=== PATIENT | female | born 1955 | race Two or more races ===

== ENCOUNTER 2017-02-16 14:20 | Emergency (ER) | payer MEDICAID, OTHER ==
[~2017-02-16] VITALS: Ht 157.5 cm; Wt 65.0 kg
[2017-02-16] MEDS ORDERED: SODIUM CHLORIDE FLUSH 10ML SYR IVF ONE ×2 (15:30→16:00)
[2017-02-16] MEDS ORDERED: SODIUM CHLORIDE 0.9%, 500ML IVBOLUS ONE (15:30)
[2017-02-16 15:45] LABS: HEMOGLOBIN 14.6 g/dL (11.7-16.4)
[2017-02-16] MEDS ORDERED: FAMOTIDINE 20 MG/2 ML ONE (15:55)
[2017-02-16] MEDS ORDERED: ONDANSETRON 2MG/ML, 2ML ONE (15:55)
[2017-02-16] MEDS ORDERED: MORPHINE SULFATE 4 MG/ML, 1ML ONE (15:55)
[2017-02-16 15:58] LABS: ASPARTATE AMINO TRANSFERASE 23 U/L (15-37); BLOOD UREA NITROGEN 10 mg/dL (7-18)
[2017-02-16] MEDS ORDERED: FAMOTIDINE 20 MG/2 ML IVP ONE (16:00)
[2017-02-16] MEDS ORDERED: ONDANSETRON 2MG/ML, 2ML IVPush ONE (16:00)
[2017-02-16] MEDS ORDERED: MORPHINE SULFATE 4 MG/ML, 1ML IVPush PRN (16:00)
[2017-02-16] MEDS ORDERED: SODIUM CHLORIDE 0.9% 1,000ML IVBOLUS ONE (16:00)
[2017-02-16 16:24] LABS: PATH.CAST-FLAG NOT PRESENT; SPERM-FLAG NOT PRESENT; SRC-FLAG NOT PRESENT; XTAL-FLAG NOT PRESENT; YLC-FLAG NOT PRESENT
[2017-02-16 18:05] VITALS: BP 128/66
== END 2017-02-16 19:15 | disposition home or self-care (01) ==
LOC: ED 19:00
DX: N30.91 Cystitis, unspecified with hematuria (principal); E78.5 Hyperlipidemia, unspecified; G89.29 Other chronic pain; I10 Essential (primary) hypertension; K59.00 Constipation, unspecified; Z90.710 Acquired absence of both cervix and uterus; Z90.49 Acquired absence of other specified parts of digestive tract
CPT/HCPCS: 36415; 74176; 74177; 80053; 81001; 83690; 85025; 87077; 87086; 96361; 96374; 96375; 99285; J2405; J7030; 87186; S0028

== ENCOUNTER 2018-04-26 11:41 | Emergency (ER) | payer MEDICAID, OTHER ==
[~2018-04-26] VITALS: Ht 157.5 cm; Wt 70.5 kg
[~2018-04-26 11:41] MED LIST: UNKNOWN BP MED PO; [UNRECOGNIZED DRUG - REMARK] PO
[2018-04-26 11:44] VITALS: BP 170/80
[2018-04-26] MEDS ORDERED: KETOROLAC 30 MG/1 ML ONE (12:21)
[2018-04-26] MEDS ORDERED: KETOROLAC 30 MG/1 ML IM ONE (12:30)
== END 2018-04-26 14:05 | disposition home or self-care (01) ==
LOC: ED 13:59
DX: S16.1XXA Strain of muscle, fascia and tendon at neck level, initial encounter (principal); S33.5XXA Sprain of ligaments of lumbar spine, initial encounter; S83.92XA Sprain of unspecified site of left knee, initial encounter; S70.02XA Contusion of left hip, initial encounter; E78.5 Hyperlipidemia, unspecified; I10 Essential (primary) hypertension; Z90.49 Acquired absence of other specified parts of digestive tract; W01.0XXA Fall on same level from slipping, tripping and stumbling without subsequent striking against object, initial encounter; Y93.89 Activity, other specified; Y92.89 Other specified places as the place of occurrence of the external cause; Y99.0 Civilian activity done for income or pay
CPT/HCPCS: 72020; 72050; 72110; 73502; 73552; 73564; 96372; 99284; J1885